=== PATIENT | male | born 1985 | race Asian ===

== ENCOUNTER 2019-04-19 17:56 | Inpatient (IN) | payer SELFPAY ==
[~2019-04-19] VITALS: Ht 162.6 cm; Wt 63.5 kg
[2019-04-19 17:58] VITALS: BP_SYST 138
--- NOTE | 2019-04-19 18:10 | NUR ---
Patient to ER bed 2 to gown for evaluation. Side rails up. Report received from Abbe TOLENTINO.
--- NOTE | 2019-04-19 18:17 | NUR ---
pt bib by his relative for CP for the past 2 days. Current VS are 118/67, 83, 96% RA, 98.2, 9/10 CP. EKG done in the [facility] pri[facility] to the pt being placed in bed 2.
--- NOTE | 2019-04-19 18:20 | NUR ---
ER at bedside examining patient.
--- NOTE | 2019-04-19 18:22 | NUR ---
# 20 gauge angiocath placed to RAC. Use of asceptic technique. Opsite placed over site. Blood return noted. Blood for lab drawn from site. Flushed with 10 cc of normal saline. No evidence of infiltration noted. Patient tolerated well.
[2019-04-19 18:43] LABS: BASOPHILS # (AUTO) 0.1 K/uL (0.0-0.2); EOSINOPHILS # (AUTO) 0.1 K/uL (0.0-0.4); EOSINOPHILS % (AUTO) 1.3 % (0.0-4.0); HEMATOCRIT 51.7 % (36-54); HEMOGLOBIN 17.6 g/dL (14.0-18.0); LYMPHOCYTES # (AUTO) 1.2 K/uL (1.0-5.5); LYMPHOCYTES % (AUTO) 12.6 % (20.5-51.5); MEAN CORPUSCULAR HEMOGLOBIN 31 pg (27-31); MEAN CORPUSCULAR HGB CONC 34 % (32-36); MEAN CORPUSCULAR VOLUME 92 fL (79.0-98.0); MONOCYTES # (AUTO) 0.9 K/uL (0.0-1.0); MONOCYTES % (AUTO) 8.9 % (1.7-9.3); NEUTROPHILS # (AUTO) 7.5 K/uL (1.8-7.7); NEUTROPHILS % (AUTO) 76.2 % (40.0-70.0); PLATELET COUNT (AUTO) 229 K/uL (130-430); RED BLOOD CELL COUNT(AUTO) 5.63 MIL/uL (4.2-6.2); RED CELL DISTRIBUTION WIDTH 13.3 % (9.0-15.0); WHITE BLOOD COUNT (AUTO) 9.8 K/uL (4.8-10.8)
--- NOTE | 2019-04-19 18:45 | NUR ---
Pt reports that he does not have CP at the moment. He reports having abd pain. Ct and abd US have been ordered.
[2019-04-19 18:47] LABS: CALCIUM 9.4 mg/dL (8.4-11.0); CREATININE 0.81 mg/dL (0.55-1.30); POTASSIUM 3.6 mmol/L (3.5-5.1)
[2019-04-19 18:52] LABS: ALBUMIN 4.2 g/dL (3.4-4.8); TOTAL BILIRUBIN 0.5 mg/dL (0.0-1.0)
[2019-04-19 18:55] LABS: PROTHROMBIN TIME 10.5 SECS (9.5-12.5)
--- NOTE | 2019-04-19 19:03 | NUR ---
care endorsed to Iva TOLENTINO.
[2019-04-19 19:11] LABS: BARBITURATE, URINE NEGATIVE (NEG <=200); BENZODIAZEPINE, URINE NEGATIVE (NEG <=150); CANNABINOID, URINE NEGATIVE (NEG <=50); COCAINE, URINE NEGATIVE (NEG <=150); METHAMPHETAMINES SCREEN,URINE NEGATIVE (NEG <=500); OPIATE, URINE NEGATIVE (NEG <=100); PHENCYCLIDINE SCREEN,URINE NEGATIVE (NEG <=25); UR TRICYCLIC ANTIDEPRESSANTS NEGATIVE (NEG <=300); URINE AMPHETAMINE NEGATIVE (NEG <=500); URINE METHADONE NEGATIVE (NEG <=200); URINE OXYCODONE SCREEN NEGATIVE (NEG <=100); URINE PROPOXYPHENE SCREEN NEGATIVE (NEG <=300)
[2019-04-19] MEDS ORDERED: MORPHINE 2 MG/ML INJ. SYRINGE IVP ONE (19:15)
[2019-04-19] MEDS ORDERED: ONDANSETRON HCL 4 MG/2 ML VIAL IVP ONE (19:30)
--- NOTE | 2019-04-19 19:33 | NUR ---
Medications were given, pt tolerated well. No adverse reaction, will continue to monitor.
--- NOTE | 2019-04-19 20:59 | NUR ---
Patient stated he felt nauseous and is in pain. Dr. Mar made aware.
[2019-04-19] MEDS ORDERED: MAG HYDROX/AL HYDROX/SIMETH 30 ML, LIDOCAINE VISCOUS 2% 15ML (PO) 10 ML, DICYCLOMINE HC... PO ONE ×3 (21:15)
--- NOTE | 2019-04-19 23:20 | NUR ---
ER Dr. Mar at bedside re-examining patient and explaining results to patient.
[2019-04-20] MEDS ORDERED: NACL 0.9% 1,000 ML IV ONE
[2019-04-20] MEDS ORDERED: MORPHINE 2 MG/ML INJ. SYRINGE IVP ONE
--- NOTE | 2019-04-20 00:07 | NUR ---
Medications were given, pt tolerated well. No adverse reaction, will continue to monitor.
--- NOTE | 2019-04-20 00:12 | NUR ---
Pt went to radiology in stable condition.
--- NOTE | 2019-04-20 00:24 | NUR ---
Patient returned from radiology in stable condition.
--- NOTE | 2019-04-20 02:07 | NUR ---
Medication reconciliation completed with information provided by patient. Per patient he does NOT take any medications prescribed by a physician.
--- NOTE | 2019-04-20 02:08 | NUR ---
End of life care decisions discussed with patient by Dr. Mar. Opportunity for questions and concerns addressed. Patient's code status is FULL CODE paperwork completed and placed in chart.
--- NOTE | 2019-04-20 03:39 | NUR ---
Dr. Mar speaking with Dr. Roman in regards to transferring patient to [place]. Per Dr. Roman, pt to be directly admitted into [facility].
--- NOTE | 2019-04-20 04:23 | NUR ---
Pt ambulated with steady gait to restroom. Pt back into bed in comfortable position. No acute distress, will continue to monitor.
--- NOTE | 2019-04-20 05:33 | NUR ---
Pt sleeping comfortably in hospital bed. No acute distress, will continue to monitor.
--- NOTE | 2019-04-20 06:29 | NUR ---
Pt resting comfortably in hospital bed. NO acute distress, will continue to monitor.
--- NOTE | 2019-04-20 07:14 | NUR ---
Report given to RAJAN Mcadams. All care endorsed.
--- NOTE | 2019-04-20 08:10 | NUR ---
Dr. Prescott at bedside for evaluation. Pt to be admitted to [facility]
--- NOTE | 2019-04-20 08:55 | NUR ---
Patient will be admitted to care of . Admitted to medsurg unit. Will go to room 125B. Summary report printed. Report will be given at bedside.
--- NOTE | 2019-04-20 09:01 | NUR ---
Admission: Received from ER on a gurney with the diagnosis of abdominal pain. Alert, oriented x4 and ambulatory with steady gait. Oriented to room, call light within reach. Still complaints of epigastric pain 6/10 , no nausea, no vomiting.
[2019-04-20 09:32] VITALS: BP_SYST 146
--- NOTE | 2019-04-20 09:35 | NUR ---
Initial Notes: Seen patient in the room. Report given by An nurse Noemy. Patient c/o abdominal pain x 2 days.Initial assessment rendered. Iv right ac intact. Call light with in reach. Bed locked at lowest position. Will call md for pain medications.
--- NOTE | 2019-04-20 09:41 | NUR ---
CONSULT GI DR. JIMÉNEZ CALLED SPOKE TO DEBBIE DIALED [phone] LANGSTON
[2019-04-20] MEDS ORDERED: ONDANSETRON HCL 4 MG/2 ML VIAL IVP PRN ×2 (10:45→13:45)
[2019-04-20] MEDS ORDERED: MAG-AL HYDROX/SIMETH 30 ML UDC PO PRN (11:00)
[2019-04-20] MEDS ORDERED: FAMOTIDINE PF 20 MG/2 ML VIAL IVP ONE (11:00)
[2019-04-20] MEDS ORDERED: MAG-AL HYDROX/SIMETH 30 ML UDC PO ONE (11:00)
[2019-04-20] MEDS ORDERED: ONDANSETRON HCL 4 MG/2 ML VIAL IM PRN (11:45)
[2019-04-20] MEDS ORDERED: PANTOPRAZOLE SODIUM 40 MG/VIAL (PROTONIX) IVP ONE ×2 (12:00)
--- NOTE | 2019-04-20 12:00 | NUR ---
RN ROUNDS: RESTING. STABLE.
[2019-04-20] MEDS ORDERED: MILK OF MAGNESIA 30 ML UDC PO PRN (13:30)
[2019-04-20] MEDS ORDERED: MORPHINE 2 MG/ML INJ. SYRINGE IVP PRN (13:45)
[2019-04-20] MEDS ORDERED: ACETAMINOPHEN 325 MG TABLET PO PRN (13:45)
[2019-04-20] MEDS ORDERED: LR 500 ML IV ONE (13:45)
[2019-04-20] MEDS ORDERED: MORPHINE 4 MG/ML INJ. SYRINGE IVP PRN (13:45)
--- NOTE | 2019-04-20 14:20 | NUR ---
RN ROUNDS: SLEEPING DURING ROUNDS. NO PROBLEM.
[2019-04-20] MEDS: LR 1,000 ML IV SCH (14:28)
[2019-04-20 14:30] LABS: CALCIUM 9.1 mg/dL (8.4-11.0); CREATININE 0.86 mg/dL (0.55-1.30)
[2019-04-20 14:34] LABS: ALBUMIN 3.6 g/dL (3.4-4.8); TOTAL BILIRUBIN 0.5 mg/dL (0.0-1.0)
[2019-04-20 14:41] LABS: POTASSIUM 3.3 mmol/L (3.5-5.1)
[2019-04-20] MEDS ORDERED: POTASSIUM CHLORIDE 20 MEQ TAB.PRT.SR PO ONE (16:45)
--- NOTE | 2019-04-20 16:59 | NUR ---
K-DUR: POTASSIUM LEVEL=3.3,K-DUR 40MEQ PO GIVEN ORDERED. DC K-RIDER AND PO ORDERED X1 BY DR LANGSTON.NO NAUSEA/VOMITING NOTED.
[2019-04-20] MEDS ORDERED: POTASSIUM CHLORIDE 40 MEQ, LIDOCAINE JECT 2% PF 100 MG 50 MG in NS 250 ML IV ONE (17:00)
[2019-04-20 17:25] VITALS: BP_SYST 112
--- NOTE | 2019-04-20 18:43 | NUR ---
END OF SHIFT: PATIENT RESTING. CALL LIGHT WITH IN REACH. BED LOCKED AT LOWEST POSITION.CONDITION GUARDED.
--- NOTE | 2019-04-20 19:55 | NUR ---
Pt is fully awake, alert and oriented x4. No acute distress noted at this time. IVF of LR is infusing well at 100ml/hr in RAC without any signs of infiltration. Pt was instructed on nothing by mouth after midnight for EGD in AM and pt verbalized understanding. Fall and safety precautions are in place. Call light is with pt and bed is in the lowest and locked positions.
[2019-04-20 20:00] VITALS: BP_SYST 103
[2019-04-20] MEDS: PANTOPRAZOLE SODIUM 40 MG/VIAL (PROTONIX) IVP SCH (20:21)
--- NOTE | 2019-04-20 20:21 | NUR ---
Pt c/o 01/26 abdominal pain. Morphine 2mg was given IVP. Pt was instructed to call for assistance before getting out of bed if he feels dizzy or drowsy to prevent fall and/or injury. Pt verbalized understanding. Call light is with pt and bed is in the lowest and locked positions.
[2019-04-20] MEDS ORDERED: FAMOTIDINE PF 20 MG/2 ML VIAL IVP SCH (21:00)
--- NOTE | 2019-04-20 22:30 | NUR ---
Pt is resting without any distress noted. IVF is infusing well in RAC. Fall and safety precautions are in place.
[2019-04-21] VITALS: BP_SYST 94
--- NOTE | 2019-04-21 | NUR ---
Pt is awake and not in any distress. Pt reminded of nothing by mouth for EGD in AM. IVF is infusing well in RAC.
[2019-04-21] MEDS: LR 1,000 ML IV SCH ×2 (00:10→11:54)
--- NOTE | 2019-04-21 02:30 | NUR ---
Pt is sleeping without any distress noted. IVF is infusing well in RAC. Fall and safety precautions are in place.
--- NOTE | 2019-04-21 04:30 | NUR ---
Pt is sleeping without any distress noted. IVF is infusing well in RAC. Call light is with pt and bed is in the lowest and locked positions.
[2019-04-21 06:29] LABS: ALBUMIN 3.1 g/dL (3.4-4.8); CALCIUM 8.1 mg/dL (8.4-11.0); CREATININE 0.84 mg/dL (0.55-1.30); TOTAL BILIRUBIN 0.6 mg/dL (0.0-1.0)
--- NOTE | 2019-04-21 06:30 | NUR ---
Pt is awake and resting comfortably in bed. IVF is infusing well in RAC. No c/o pain or discomfort. Will endorse to day shift nurse.
[2019-04-21 06:35] LABS: BASOPHILS # (AUTO) 0.1 K/uL (0.0-0.2); EOSINOPHILS # (AUTO) 0.2 K/uL (0.0-0.4); EOSINOPHILS % (AUTO) 2.6 % (0.0-4.0); HEMATOCRIT 41.5 % (36-54); HEMOGLOBIN 14.2 g/dL (14.0-18.0); LYMPHOCYTES % (AUTO) 26.4 % (20.5-51.5); MEAN CORPUSCULAR HEMOGLOBIN 32 pg (27-31); MEAN CORPUSCULAR HGB CONC 34 % (32-36); MEAN CORPUSCULAR VOLUME 92 fL (79.0-98.0); MONOCYTES # (AUTO) 0.6 K/uL (0.0-1.0); MONOCYTES % (AUTO) 8.2 % (1.7-9.3); NEUTROPHILS # (AUTO) 4.8 K/uL (1.8-7.7); NEUTROPHILS % (AUTO) 61.8 % (40.0-70.0); PLATELET COUNT (AUTO) 188 K/uL (130-430); RED CELL DISTRIBUTION WIDTH 13.3 % (9.0-15.0); WHITE BLOOD COUNT (AUTO) 7.7 K/uL (4.8-10.8)
--- NOTE | 2019-04-21 07:15 | NUR ---
Initial notes: Patient awake, alert and oriented. Stable. I.V. access patent. Discussed plan of care. Call light within reach. Safety measures in placed. Report received at bedside.
--- NOTE | 2019-04-21 07:20 | NUR ---
GI LAB Patient went to GI lab for EGD.
[2019-04-21] MEDS ORDERED: SIMETHICONE 40 MG/0.6 ML ML ONE (07:35)
[2019-04-21] MEDS ORDERED: BENZOCAINE 20% 0.5mL UD SPRAY MM ONE (07:35)
[2019-04-21] MEDS ORDERED: MIDAZOLAM HCL 5 MG/5 ML VIAL ONE (07:35)
--- NOTE | 2019-04-21 08:55 | NUR ---
PAGED PAGED CRISTAL WOOTEN AT [phone] SPOKE WITH ORESTES.
[2019-04-21] MEDS: PANTOPRAZOLE SODIUM 40 MG/VIAL (PROTONIX) IVP SCH (09:02)
--- NOTE | 2019-04-21 09:06 | NUR ---
GI lab: Patient upset the schedule was moved to 1pm. Wants to go AMA. Encouraged patient to wait for the EDG. Patient calmed down and will wait for the schedule.
[2019-04-21 09:26] LABS: ERYTHROCYTE SEDIMENTATION RATE 3 MM/HR (0-15)
--- NOTE | 2019-04-21 11:00 | NUR ---
rounds: patient sleeping. no distress noted.
[2019-04-21 12:38] VITALS: BP_SYST 93
--- NOTE | 2019-04-21 13:57 | NUR ---
EDG: patient went to GI lab.
[2019-04-21] MEDS: MIDAZOLAM HCL 5 MG/5 ML VIAL ONE ×3 (14:05→14:15)
[2019-04-21] MEDS: fentaNYL CITRATE/PF 100 MCG/2 ML AMP ONE ×2 (14:05→14:07)
[2019-04-21] MEDS ORDERED: DIPHENHYDRAMINE INJ 50 MG/ML VIAL ONE (14:28)
--- NOTE | 2019-04-21 14:30 | NUR ---
Radha visit: Seen by Dr Turcios. Explained to the patient the HIDA scan for further test. Patient agreed to do it.
--- NOTE | 2019-04-21 15:54 | NUR ---
rounds: Informed Patient the hida scan tech/nurse will be here 8-9PM. He said he will wait for the her to come.
[2019-04-21 16:04] VITALS: BP_SYST 95
--- NOTE | 2019-04-21 19:20 | NUR ---
Pt is fully awake, alert and oriented x4. No acute distress noted at this time. IVF of LR is infusing well at 100ml/hr in RAC without any signs of infiltration. Pt was instructed on nothing by mouth for HIDA scan tonight and pt verbalized understanding. Pt stated he is going home tonight after HIDA scan. Pt was advised to wait for MD to discharge him, but pt insisted on leaving tonight regardless of result of HIDA scan. Pt stated he will leave AMA. Fall and safety precautions are in place. Call light is with pt and bed is in the lowest and locked positions.
--- NOTE | 2019-04-21 19:27 | NUR ---
Closing notes: Patient on bed resting. Stable. Needs attended. Remains NPO. Waiting for HIDA scan. Call light within reach. Report given to RAJAN Jaquez.
[2019-04-21 20:00] VITALS: BP_SYST 102
--- NOTE | 2019-04-21 20:05 | NUR ---
Pt was taken to Radiology for HIDA scan via wheelchair in stable condition. IVF was converted to saline lock per the Product Line Manager's request.
--- NOTE | 2019-04-21 21:15 | NUR ---
Dr. Patrick called regarding another pt and RN informed him that this pt wants to leave AMA after HIDA scan. Dr. Patrick stated okay for pt to leave AMA.
--- NOTE | 2019-04-21 21:25 | NUR ---
Pt was brought back to his room via wheelchair by Director Child who stated pt did not allow her to complete HIDA scan. She stated pt just got off the table and told her he was leaving the hospital tonight.
--- NOTE | 2019-04-21 21:50 | NUR ---
Pt left the hospital AMA after signing AMA form. Charge nurse was notified. Prior to pt leaving, RN informed pt again that he has not been discharged by MD and pt verbalized understanding of leaving AMA. Citizen Of [place] Speaking RN Rafaela Cabral also explained to pt that MD has not discharged him, but pt insisted on leaving AMA. Pt also requested to sign any AMA paper that needs his signature. Prior to pt leaving, Saline lock in RAC was discontinued with the Angiocath intact. Pt's wrist ID band was removed and placed in the shredder. Pt was taken outside by RN in a wheelchair where pt was picked up in a private car by pt's friend.
== END 2019-04-21 21:50 | disposition left against medical advice (07) | DRG 392 ==
LOC: SED 17:56 → SMU 04-20 08:47
PROVIDERS: ADMIT Internal Medicine; ATTEND Internal Medicine
PROC: 0DB68ZX Excision of Stomach, Via Natural or Artificial Opening Endoscopic, Diagnostic (ICD-10-PCS; 2019-04-21)
PROC: 0DB98ZX Excision of Duodenum, Via Natural or Artificial Opening Endoscopic, Diagnostic (ICD-10-PCS; principal; 2019-04-21 08:00)
DX: K29.00 Acute gastritis without bleeding (principal); K83.8 Other specified diseases of biliary tract; Z53.21 Procedure and treatment not carried out due to patient leaving prior to being seen by health care provider; K82.8 Other specified diseases of gallbladder; Z72.0 Tobacco use
CPT/HCPCS: 36415; 43239; 71045; 76700-TC; 78226; 80053; 80061; 80307; 82550-TC; 83690-TC; 83880; 84484; 85025; 85379; 85610-TC; 85651-TC; 85730-TC; 87081; 88305; 88312; 88313; 93005; 96361; 96374; 96375; 96376; 99285; A9537; C9113; J1200; J2001; J2250; J2270; J2405; J3010; J3480; J3490; J7050; J7120